=== PATIENT | male | born 1995 ===

== ENCOUNTER 2023-02-25 19:21 | Outpatient (REF) | payer BC, SELFPAY ==
[2023-02-25 14:42] LABS: Anion Gap 8.5 mmol/L (3-11); BUN 13 mg/dL (7-18); CO2 27.5 mmol/L (21.0-32.0); CREATININE 1.1 mg/dL (0.70-1.30); Calcium 9.3 mg/dL (8.5-10.1); Calculated LDL 102 mg/dL (<100); Chloride 105 mmol/L (98-107); Cholesterol 178 mg/dL (<200); Estimated GFR 94.36 (mL/min/1.73m2); Glucose 147 mg/dL (74-106); HDL Cholesterol 59 mg/dL (40-60); Potassium 3.7 mmol/L (3.5-5.1); Sodium 141 mmol/L (136-145); Triglyceride 86 mg/dL (<150)
[2023-02-25 14:46] LABS: Hemoglobin A1C 5.1 % (<5.7)
== END 2023-02-25 19:22 | disposition home or self-care (01) ==
LOC: NCHCN 19:21
PROVIDERS: PCP Family Medicine; Visit Provider Family Medicine
DX: Z00.01 Encounter for general adult medical examination with abnormal findings (principal)
CPT/HCPCS: 80048; 80061; 83036